=== PATIENT | male | born 1960 | race Two or more races ===

== ENCOUNTER 2016-12-04 05:47 | Day surgery (SDC) | payer OTHER ==
[2016-12-04] MEDS ORDERED: LR 1,000 ML IV ONE (06:32)
[2016-12-04] MEDS ORDERED: LIDOCAINE 1% 2 ML INJ ID PRN (06:32)
[2016-12-04] MEDS ORDERED: PROPOFOL/EMULSION 500 MG/50 ML BOTTLE IV ONE (07:25)
[2016-12-04] MEDS ORDERED: LIDOCAINE 2% 5 ML SDV ONE (07:25)
--- NOTE | 2016-12-04 07:28 | PDGENHP ---
History & Physical Chief Complaint: Needs Screening Colonoscopy Relevant Physical Exam: GEN: NAD. Cardiac: RRR. Lungs: CTA B. Abd: Soft, nt, nd
[2016-12-04] MEDS ORDERED: PROPOFOL 200 MG/20 ML VIAL ONE (07:31)
[2016-12-04] MEDS ORDERED: ONDANSETRON 4 MG/2 ML VIAL IVP PRN (07:40)
[2016-12-04] MEDS ORDERED: fentaNYL 100 MCG/2 ML INJ IVP PRN (07:40)
[2016-12-04] MEDS ORDERED: NALOXONE HCL 0.4 MG/ML INJ IVP PRN (07:40)
[2016-12-04] MEDS ORDERED: ACETAMINOPHEN 500 MG TAB PO PRN (07:40)
--- NOTE | 2016-12-04 07:40 | PDANEPAE ---
ANE History of Present Illness colonoscopy ANE Past Medical History - Cardiovascular History Hx Hypertension: No - Pulmonary History Hx COPD: No Hx Asthma/Reactive Airway Disease: No Hx Sleep Apnea: No ANE Review of Systems Review of systems is: negative - Exercise capacity METS (RN): 4 METS ANE Patient History - Allergies Allergies/Adverse Reactions: No Known Allergies Allergy (Unverified 12/04/16 06:37) - NPO status NPO Since - Liquids (Date): 12/03/16 NPO Since - Liquids (Time): 22:00 NPO Since - Solids (Date): 12/03/16 NPO Since - Solids (Time): 09:00 ANE Labs/Vital Signs - Vital Signs Blood Pressure: 112/76 Heart Rate: 68 Respiratory Rate: 18 O2 Sat (%): 94 ANE Physical Exam - Airway Neck exam: FROM Mallampati Score: Class 2 Mouth exam: normal dental/mouth exam - Pulmonary Pulmonary: clear to auscultation - Cardiovascular Cardiovascular: regular rate and rhythym - ASA Status ASA Status: II ANE Anesthesia Plan Anesthesia Plan: general endotracheal anesthesia
--- NOTE | 2016-12-04 07:49 | POSTOPPROG ---
Post Op Note Date of Operation: 12/04/16 Surgeon: Miguel Bright Pre-op Diagnosis: screen colonoscopy Post-op Diagnosis: Same Indication: screen colonoscopy Procedure: colonoscopy Findings: normal colonoscopy Inf/Abcess present in the surg proc area at time of surgery?: No
--- NOTE | 2016-12-04 07:59 | POSTANESTH ---
Post Anesthetic Evaluation Cardiovascular Status: Normal, Stable Respiratory Status: Normal, Stable Level of Consciousness/Mental Status: Can Participate in Eval, Alert and Oriented Pain Control: Adequate, Prn Tx Ordered Nausea/Vomiting Control: Adequate, Prn Tx Ordered Complications Possibly Related to Anesthesia: None Noted
[2016-12-04 08:06] VITALS: TEMP 97.9
[2016-12-04 08:36] VITALS: O2SAT 96
[2016-12-04 08:39] VITALS: BP 119/78; PULSE 56; RESP 16
--- NOTE | 2016-12-04 12:41 | GPN ---
[f rep st] PROCEDURE NOTE PREPROCEDURE DIAGNOSIS: Need for screening colonoscopy. POSTPROCEDURE DIAGNOSIS: Normal screening colonoscopy. PROCEDURE: Colonoscopy. MEDICATIONS: Monitored anesthesia care. INDICATIONS: The patient is a 56-year-old gentleman with no prior screening colonoscopy. He has no family history of colon cancer or colon polyps. He is here today for a screening colonoscopy. The risks and benefits of the procedure were discussed the patient. Consent obtained. Risks include, but not limited to, bleeding, perforation, risks associated with sedation. The patient is ASA class 2. DESCRIPTION OF PROCEDURE: The adult colonoscope was advanced to the terminal ileum, which appears n ormal. The appendiceal orifice, the cecum, ascending colon, hepatic flexure, transverse colon, sple tanner flexure, descending colon, sigmoid colon, rectum were normal. Retroflexed views in the rectum w ere normal. IMPRESSION: Normal screening colonoscopy. RECOMMENDATIONS: 1. Discharge to home with escort. 2. Advance diet as tolerated. 3. Continue current medications. 4. Repeat screening colonoscopy in 10 years. 5. Thank you for allowing me to participate in the care of this patient. Please do not hesitate to call with questions. /[id number]/MODL
== END 2016-12-04 09:35 | disposition home or self-care (01) ==
LOC: FSGY 05:47
PROVIDERS: ATTEND Internal Medicine Gastroenterology
PROC: 0DJD8ZZ Inspection of Lower Intestinal Tract, Via Natural or Artificial Opening Endoscopic (ICD-10-PCS; principal; 2016-12-04 07:30)
DX: Z12.11 Encounter for screening for malignant neoplasm of colon (principal)
CPT/HCPCS: J2704